=== PATIENT | female | born 1995 ===

== ENCOUNTER 2025-02-19 21:10 | Emergency (ER) | payer BC ==
[~2025-02-19] VITALS: Ht 167.6 cm; Wt 83.9 kg
[2025-02-19] MEDS ORDERED: NS 1,000 ML IV SCH (21:45)
[2025-02-19] MEDS ORDERED: Metoclopramide HCl 5MG / ML 2ML Vial IV ONE (21:45)
[2025-02-19] MEDS ORDERED: DiphenhydrAMINE HCl 50 MG/ML 1ML Vial IV ONE (21:50)
[2025-02-19 22:10] LABS: BASOPHILS ABSOLUTE AUTO 0.04 K/mm3 (0.00-0.23); BASOPHILS PERCENT AUTO 0 % (0-2); EOSINOPHILS ABSOLUTE AUTO 0.02 K/mm3 (0.00-0.68); EOSINOPHILS PERCENT AUTO 0 % (0-6); Hematocrit 39.4 % (33.0-51.0); IMMATURE GRAN ABSOLUTE AUTO 0.08 K/mm3 (0.00-0.10); IMMATURE GRAN PERCENT AUTO 1 % (0-1); LYMPHOCYTES ABSOLUTE AUTO 0.56 K/mm3 (0.84-5.20); LYMPHOCYTES PERCENT AUTO 4 % (21-46); MONOCYTES ABSOLUTE AUTO 0.52 K/mm3 (0.16-1.47); MONOCYTES PERCENT AUTO 4 % (4-13); Mean Corpuscular HGB 29.8 pg (26.0-34.0); Mean Corpuscular HGB Conc 35.5 g/dL (31.5-36.5); Mean Corpuscular Volume 84 fL (80-100); NEUTROPHILS ABSOLUTE AUTO 13.73 K/mm3 (1.96-9.15); NEUTROPHILS PERCENT AUTO 92 % (41-73); Platelet Count 287 K/mm3 (150-400); RDW Coefficient Variation 12.9 % (11.7-14.2); RDW Standard Deviation 39.4 fL (35.1-46.3); White Blood Cell Count 14.95 K/mm3 (4.00-11.30)
[2025-02-19 22:28] LABS: Albumin, Blood 3.5 g/dL (3.4-5.0); Albumin/Globulin Ratio 0.9 (0.8-1.8); Bilirubin, Total 0.7 mg/dL (0.1-1.0); Bun/Creatinine Ratio 21.6 (12.0-20.0); Calcium, Blood 8.9 mg/dL (8.5-10.1); Creatinine, Blood 0.46 mg/dL (0.40-1.00); Globulin, Blood 3.9 g/dL (2.2-4.0); Potassium, Blood 3.8 mmol/L (3.5-5.5); Total Protein, Blood 7.4 g/dL (6.4-8.2)
[2025-02-20] MEDS ORDERED: Promethazine HCl 25 MG Tab PO ONE (01:40)
[2025-02-20 01:51] LABS: Source, Urine Clean Catch
[2025-02-20 01:59] LABS: Bilirubin, Urine Neg (Neg); Blood, Urine Neg (Neg); Glucose Qualitative, Urine Neg (Neg); Ketones, Urine 4+ (Neg); Leukocyte Esterase, Urine 1+ (Neg); Nitrite, Urine Neg (Neg); Protein, Urine 1+ (Neg); Specific Gravity, Urine 1.025 (1.003-1.022); Urobilinogen, Urine NORM (Normal)
[2025-02-20 02:10] LABS: Appearance, Urine Hazy (Clear); Color, Urine Yellow (P-Yellow); Red Blood Cells, Urine Not Seen /hpf (0-2); Squamous Epithelial Cells Few /hpf (Few)
[2025-02-20 02:11] LABS: Amorphous Light (0-Heavy); Bacteria Mod /hpf; Mucus Heavy (0-Heavy)
[2025-02-20] MEDS ORDERED: Cephalexin Monohydrate 500 MG Cap PO ONE (03:05)
[2025-02-20] MEDS ORDERED: PROM25 PO (03:08)
[2025-02-20] MEDS ORDERED: CEPH500 PO (03:08)
[2025-02-20 03:19] VITALS: BP 109/71
== END 2025-02-20 03:16 | disposition home or self-care (01) ==
LOC: ER 21:10
PROVIDERS: Student in an Organized Health Care Education/Training Program
DX: O21.9 Vomiting of pregnancy, unspecified (principal); O23.41 Unspecified infection of urinary tract in pregnancy, first trimester; N39.0 Urinary tract infection, site not specified; Z3A.11 11 weeks gestation of pregnancy
CPT/HCPCS: 80053; 81001; 85025; A9270; J1200; J2765; J7030